=== PATIENT | male | born 1975 | race Caucasian/White ===

== ENCOUNTER 2021-04-08 18:11 | Emergency (ER) | payer OTHER ==
[2021-04-08 19:04] VITALS: BP 127/72; PULSE 85; TEMP 98.1; BMI 30.8
[2021-04-08] MEDS ORDERED: ERYTHROMYCIN 0.5% OPHTHALMIC OINTMENT 3.5 GM TUBE OS ONE (19:49)
== END 2021-04-08 21:05 | disposition home or self-care (01) ==
LOC: JERFT 18:11
DX: H00.014 Hordeolum externum left upper eyelid (principal); H52.13 Myopia, bilateral
CPT/HCPCS: 99283-25